=== PATIENT | male | born 1975 | race Hispanic/Latino ===

== ENCOUNTER 2022-06-28 18:38 | Observation (INO) | payer SELFPAY ==
--- NOTE | ~2022-06-28 | CT_ITS ---
CT OF right foot EXAMINATION: CT foot RT w con DATE: 06/28/2022 21:17 INDICATION: Concern for abscess on the plantar aspect of the foot/toes in the region of the second an d third digits. History of [place]at[place]al [place] possibly by pin fixation, subsequently removed. Generalized redness and swelling. Persistent pain. TECHNIQUE: Computed tomography (CT) of the right foot was performed without intravenous contrast. Aut omated exposure control and iterative reconstruction technique were employed. The dose-length product was 550.73 mGy-cm. COMPARISON: None. FINDINGS: Partially healed second metatarsal neck fracture, with approximately 25% osseous bridging. Suggestion of pin tracks in the second metatarsal head. Osteopenia and possible cortical erosions on the distal and inferior aspect of the second through fifth metatarsal heads. Partially healed fractures of the lateral cuneiform and cuboid bones. 5 mm fluid density collection along the dorsal surface of the an t superficial and slightly lateral to the second metatarsal head, with mild rim enhancement. Mild sub cutaneous edema of the foot, most pronounced in the forefoot. IMPRESSION: 1. 5 mm fluid density collection dorsal and slightly lateral to the second metatarsal head, may repre sent postsurgical change or early abscess. 2. Osteopenia and the suggestion of erosions in the second through fifth metatarsal heads which may r epresent disuse osteopenia, healing posttraumatic change, or early osteomyelitis. 3. Forefoot edema/cellulitis. 4. Healing fractures of the lateral cuneiform and cuboid bones. 5. Consider MR of the foot without and with contrast for further evaluation. Reviewed, dictated and finalized at location [facility]. [employer] POLICY ADVISOR IMPRESSION: 1. 5 mm fluid density collection dorsal and slightly lateral to the second meta tarsal head, may represent postsurgical change or early abscess. 2. Osteopenia and the suggestion of erosions in the second through fifth metata rsal heads which may represent disuse osteopenia, healing posttraumatic change, or early osteomyelitis. 3. Forefoot edema/cellulitis. 4. Healing fractures of the lateral cuneiform and cuboid bones. 5. Consider MR of the foot without and with contrast for further evaluation.
--- NOTE | ~2022-06-28 | MR_ITS ---
MRI of the right foot CLINICAL HISTORY: Osteomyelitis TECHNIQUE: Sagittal T1-weighted and STIR images, axial T1-weighted, T1 fat-sat, and T2 fat-sat images , and coronal T1-weighted and T2 fat-sat images were performed. Following intravenous administration of 20 cc MultiHance gadolinium, T1-weighted fat-sat imaging was performed in the axial, coronal, and sagittal planes. Correlation made with CT scan of the right foot dated 06/28/2022. FINDINGS: There is no confluent hypointense T1 marrow signal to suggest osteomyelitis in the forefoot or visualized midfoot. Suggestion of postsurgical change about the second metatarsal head. Fracture of the distal second metatarsal neck is again present, as seen on recent CT scan. There are partially imaged probable healing fractures of the cuboid and lateral cuneiform, as seen on recent CT scan, wi th associated extensive marrow edema. Visualized joint spaces are essentially unremarkable. No signif icant joint effusion. Flexor and extensor tendons appear intact. There is mild nonspecific edema of the plantar musculature of the foot. No abscess evident. No intermetatarsal bursitis or Hernandez's neuroma evident. IMPRESSION: No evidence for osteomyelitis. Fractures of the second metatarsal neck, lateral cuneiform, and cuboid, as seen on recent CT scan. Reviewed, dictated and finalized at [facility]. ION ADMINISTRATOR
[2022-06-28 18:52] VITALS: BP 140/88; PULSE 105; RESP 16; TEMP 37.1; O2SAT 99
--- NOTE | 2022-06-28 19:37 | ED.LOWEXIN ---
HPI - Extremity Injury (Lower) General Chief Complaint: Extremity Injury, Lower <KASSY Reyes Last Filed: 06/29/22 00:42> Stated Complaint: R. foot infection <Tri Faith PA-C - Last Filed: 06/29/22 00:42> Time Seen by Provider: 06/28/22 19:25 <KASSY Reyes Last Filed: 06/29/22 00:42> History of Present Illness HPI Narrative: Patient is a 46-year-old male here for evaluation of right foot redness and swelling over the past week. Patient states that he sustained a fracture in his foot in [place] at the end of May. He went underwent surgery with pins placed at that time. Pins were removed at the end of May. He is currently wearing a postop shoe. Over the past week he has noted increased pain on the plantar aspect of his foot in addition to redness and swelling. He denies any fevers, chills, nausea or vomiting. He was seen in urgent care facility today where he had an x-ray done that could not rule out osteomyelitis so he was referred here. Patient states that the pain is most severe when he is bearing weight on the foot. <KASSY Reyes Last Filed: 06/29/22 00:42> Related Data Allergies/Adverse Reactions: Allergies Allergy/AdvReac Type Severity Reaction Status Date / Time No Known Allergies Allergy Verified 06/28/22 18:56 <KASSY Reyes Last Filed: 06/29/22 00:42> Review of Systems Review of Systems: Gen.: Denies fevers or chills Eyes: Denies eye pain or visual change ENT: Denies congestion Respiratory: Denies shortness of breath or cough CV: Denies chest pain or palpitations GI: Denies abdominal pain nausea, emesis or diarrhea denies burning, urgency, frequency or hematuria Musculoskeletal: Reports right foot pain Neuro: Denies numbness, tingling, weakness or focal weakness Skin: Denies rash Except as documented, all other systems reviewed and negative <KASSY Reyes Last Filed: 06/29/22 00:42> Exam Narrative: APPEARANCE: Well appearing, no pain in distress, well-nourished. Head: Normocephalic and atraumatic. EYES: PERRLA/EOMI, conjunctivae clear NOSE: No nasal drainage EARS: External ear normal in appearance THROAT: Oropharynx is clear. Mucous membranes are moist. NECK: Supple. No adenopathy, no masses. RESPIRATORY: Airway patent, respirations nonlabored. Clear to auscultation bilaterally, no rales, rhonchi, wheezing. CARDIOVASCULAR: Regular rate and rhythm without murmurs, rubs, or gallops. ABDOMINAL: Normoactive bowel sounds. Soft, nontender, nondistended. No rebound tenderness or guarding. MUSCULOSKELETAL: There is slight redness and swelling to the entirety of the foot, most notably on the plantar aspect around the base of toes 2 and 3. This area is firm and tender to palpation. No obvious fluctuance. He has full range of motion in the foot without pain. There is a surgical scar on the dorsal aspect of the foot that is healing well. No drainage noted from the scar. NEURO: Normal speech. No focal neurologic deficits. SKIN: Skin is warm and dry. No rashes. PSYCHIATRIC: Normal affect/mood. <Tri Faith PA-C - Last Filed: 06/29/22 00:42> Course JAVA ANALYST/PA Physician Supervision For this encounter, I have reviewed the PA documentation, treatment plan and medical decision making: And I have had [id number] time with the patient. Right foot diffusely swollen with increased tenderness at the base of the MTP joints 2 3 and 4 there is mild erythema no definitive open wounds no definitive fluctuance dorsalis pedis pulse 2+ neurovascular intact discussed with patient conversations with orthopedics plan for admission all questions answered in agreement at this time <Sridhar Hernandez DO - Last Filed: 06/28/22 22:59> Vital Signs Vital signs: Vital Signs Temperature 98.7 F 06/28/22 18:52 Pulse Rate 105 H 06/28/22 18:52 Respiratory Rate 16 06/28/22 18:52 Blood Press
[2022-06-28] MEDS: HYDROcodone/acetaminophen (*CRX) 5-325 MG TABLET 1 TAB PO (19:50)
[2022-06-28 19:52] LABS: Basophils Absolute Auto 0.1 K/mm3 (0.0-0.1); Basophils Percent Auto 0.5 % (0.2-1.2); Eosinophils Absolute Auto 0.6 K/mm3 (0-0.3); Eosinophils Percent Auto 5.8 % (0-4.4); Hematocrit 47.8 % (42.0-52.0); Hemoglobin 17.2 g/dL (14.0-18.0); Immature Granulocyte Absolute 0.02 K/mm3 (0.00-0.031); Immature Granulocyte Percent A 0.2 % (0-0.5); Lymphocytes Absolute Auto 2.55 K/mm3 (0.9-3.2); Lymphocytes Percent Auto 25.2 % (18.3-44.2); Mean Corpuscular Volume 86.1 fl (80-100); Mean Platelet Volume 9.4 fl (7.4-10.4); Monocytes Absolute Auto 0.8 K/mm3 (0.1-0.6); Monocytes Percent Auto 8.2 % (2.6-8.5); Neutrophils Absolute Auto 6.1 K/mm3 (1.3-6.7); Neutrophils Percent Auto 60.1 % (45.5-73.1); Platelet Count Result 295 k/mm3 (150-375); Red Blood Count 5.55 M/mm3 (4.6-6.20); Red Cell Distribution Width 11.8 % (11.5-14.5); White Blood Count 10.1 K/mm3 (4.5-10.0)
[2022-06-28 20:05] LABS: Alanine Aminotransferase 29 U/L (6-50); Albumin Level 4.9 g/dL (3.5-5.1); Alkaline Phosphatase 90 U/L (38-126); Anion Gap 10 mmol/L (8-16); Aspartate Amino Transferase 27 U/L (17-59); Bilirubin,Total 0.5 mg/dL (0.2-1.3); Blood Urea Nitrogen 26 mg/dL (9-20); CRP 0.6 mg/dL (<1.0); Calcium 9.3 mg/dL (8.4-10.2); Carbon Dioxide 26 mmol/L (22-30); Chloride 105 mmol/L (98-107); Estimated CRCL calculation 96 ml/min; Estimated Glomerular Filt Rate > 60; Glucose 99 mg/dL (65-110); Sodium 141 mmol/L (137-145)
[2022-06-28 20:14] LABS: D Dimer 0.48 ug/mL (<0.48)
[2022-06-28 20:27] LABS: Erythrocyte Sedimentation Rate 5 mm/hr (0-20)
--- NOTE | 2022-06-28 22:53 | PM.IMHP ---
H&P: HPI History of Present Illness Date/Time: 06/28/22 22:53 Chief Complaint: right foot pain Narrative: This is a 46-year-old male with known significant past medical history patient presents to the emergency room due to right foot pain and swelling and tenderness upon weight-bearing patient was on a occasion on to [place] where he fracture his foot which require hardware wound which was removed patient now presents after 6 weeks with swelling tenderness in the site. Patient denies any fevers, rigors, chills, night sweats, nausea, vomiting, generalized body aches or pains. Preliminary workup was significant for a CT of the foot was reported as: FINDINGS: Partially healed second metatarsal neck fracture, with approximately 25% osseous bridging. Suggestion of pin tracks in the second metatarsal head. Osteopenia and possible cortical erosions on the distal and inferior aspect of the second through fifth metatarsal heads. Partially healed fractures of the lateral cuneiform and cuboid bones. 5 mm fluid density collection along the dorsal surface of the foot superficial and slightly lateral to the second metatarsal head, with mild rim enhancement. Mild subcutaneous edema of the foot, most pronounced in the forefoot. IMPRESSION: 1. 5 mm fluid density collection dorsal and slightly lateral to the second metatarsal head, may represent postsurgical change or early abscess. 2. Osteopenia and the suggestion of erosions in the second through fifth metatarsal heads which may represent disuse osteopenia, healing posttraumatic change, or early osteomyelitis. 3. Forefoot edema/cellulitis. 4. Healing fractures of the lateral cuneiform and cuboid bones. 5. Consider MR of the foot without and with contrast for further evaluation. patient has been admitted for further evaluation management and treatment. Review of Systems Review of Systems: Right foot swelling and tenderness upon weight-bearing Constitutional: Constitutional: Denies chills, Denies fever(s), Denies malaise, Denies night sweats, Denies poor appetite and Denies weakness Eyes: Eyes: Denies change in vision ENT: Denies dysphagia, Denies vertigo, Denies dizziness and Denies odynophagia Cardiovascular: Cardiovascular: Denies chest pain, Denies leg edema, Denies palpitations and Denies orthopnea Respiratory: Respiratory: Denies chest congestion, Denies cough, Denies pain on inspiration and Denies dyspnea on exertion Gastrointestinal: Gastrointestinal: Denies abdominal pain, Denies dyspepsia, Denies heartburn, Denies diarrhea, Denies nausea and Denies vomiting Genitourinary: Genitourinary: Denies dysuria Musculoskeletal: Musculoskeletal: Reports other ( right foot pain upon weight-bearing on old fracture site) Integumentary/Breasts: Skin/Breast: Reports skin swelling ( right foot plantar aspect forefoot) Neurologic: Denies focal weakness and Denies Sensory deficit (Neuro) Psychiatric: Psychiatric: Reports no additional psychiatric complaints and Reports as per HPI Endocrine: Endocrine: Denies cold intolerance, Denies flushing, Denies heat intolerance, Denies polyphagia, Denies polydipsia and Denies palpitations Hematologic/Lymphatic: Hematologic/Lymphatic: Reports no additional hematologic/lymphatic complaints and Reports as per HPI Allergic/Immunologic: Allergic/Immunologic: Reports no additional allergic/immunologic complaints and Reports as per HPI PMFSH Social History Social History Smoking status: Never smoker Second hand tobacco smoke exposure: No Alcohol intake: current Substance use: never Substance use type: does not use Lack of Transportation: No Lack of Food: Never True Current Housing: I Have Housing Concerned About Future Housing: No Difficulty Paying Gas/Electric Bills: No Difficulty Paying for Meds: No Currently Unemployed: No Education: High School Diploma/GED Difficulty w/ Childcare or Family Care: No Spiritual care concerns: No
[2022-06-28 23:17] LABS: Influenza A QL RT-PCR Negative (Negative); Influenza B QL RT-PCR Negative (Negative); SARS-CoV-2 RNA PCR Negative
[2022-06-28 23:18] VITALS: BP 140/96; PULSE 88; RESP 14; TEMP 36.8; O2SAT 97
[2022-06-29] MEDS: CLINDAMYCIN 600 MG/D5W 50 ML 600 MG/50 ML PIGGYBACK 100 MG IVPB ×2 (00:02→09:31)
[2022-06-29 00:36] VITALS: BP 131/90; PULSE 77; RESP 16; TEMP 36.5; O2SAT 100
[2022-06-29 06:00] VITALS: BP 122/84; PULSE 77; RESP 16; TEMP 36.1; O2SAT 98
--- NOTE | 2022-06-29 08:04 | PM.IMPN ---
Progress Note: A&P Assessment and Plan (1) Foot pain, right: Code(s): M79.671 - Pain in right foot Status: Acute Assessment and Plan: Orthopedic surgery consult pending MRI of foot negative for osteomyelitis or abscess Started on vancomycin and clindamycin in the ER, will DC clindamycin in favor of Rocephin Update: Orthopedic surgery has seen the patient, no concern for infection, okay to stop antibiotics. Plan for fracture boot, discharge, and follow-up outpatient. Plan DVT prophylaxis with SCDs GI prophylaxis not indicated Code status full code Subjective Date/time seen: 06/29/22 08:04 Interval history: No overnight events noted. No chest pain or shortness of breath. No nausea, vomiting or diarrhea. No fevers or chills. Pain with weight-bearing on right lower extremity, unchanged. Review of Systems Review of Systems: 12 point review of systems was assessed and was negative except as noted in the HPI Exam Narrative: General: No acute distress, alert and oriented per baseline HEENT: Atraumatic, normocephalic, mucous membranes moist CV: Regular rate and rhythm, S1, S2 Lungs: Clear to auscultation bilaterally, no rales or crackles noted, no wheezes, good air entry Abdomen: Soft, nontender, nondistended Extremities: Normal to inspection, no ligament laxity noted at bilateral ankle joint, no edema, no ecchymotic areas Skin: No rashes noted, no lesions or wounds seen Psych: Euthymic, normal affect Neuro: Cranial nerves 2-12 grossly intact, strength +5/5 upper and lower extremities bilaterally Objective Data Vital Signs Vital Signs: Vital Signs - 24 hr 06/28/22 18:52 06/28/22 23:18 06/29/22 00:36 Temperature 98.7 F 98.2 F 97.7 F Pulse Rate 105 H 88 77 Respiratory Rate 16 14 16 Blood Pressure 140/88 140/96 H 131/90 Pulse Oximetry 99 97 100 Oxygen Delivery Room Air 06/29/22 06:00 Temperature 97 F L Pulse Rate 77 Respiratory Rate 16 Blood Pressure 122/84 Pulse Oximetry 98 Oxygen Delivery Meds/Results Medications: Active Medications Generic Name Dose Route Start Last Admin Trade Name Freq PRN Reason Stop Dose Admin Clindamycin Phosphate 600 mg in 50 mls @ 100 mls/hr 06/29/22 08:00 Clindamycin 600 Mg/D5w 50 Ml IVPB Q8H [facility] Vancomycin HCl 1,750 mg in 500 mls @ 250 mls/hr 06/29/22 11:00 Vancomycin 1,750 Mg/D5w 500 Ml IVPB Q12H [facility] Radiology Results: ITS Impressions Foot CT 06/28/22 22:07 IMPRESSION: 1. 5 mm fluid density collection dorsal and slightly lateral to the second metatarsal head, may represent postsurgical change or early abscess. 2. Osteopenia and the suggestion of erosions in the second through fifth metatarsal heads which may represent disuse osteopenia, healing posttraumatic change, or early osteomyelitis. 3. Forefoot edema/cellulitis. 4. Healing fractures of the lateral cuneiform and cuboid bones. 5. Consider MR of the foot without and with contrast for further evaluation. Labs Labs: Laboratory Results - last 24 hr 06/28/22 06/28/22 06/28/22 19:43 19:43 19:43 WBC 10.1 H RBC 5.55 Hgb 17.2 Hct 47.8 MCV 86.1 MCH 31.0 MCHC 36.0 RDW 11.8 Plt Count 295 MPV 9.4 Immature Gran % (Auto) 0.2 Neut % (Auto) 60.1 Lymph % (Auto) 25.2 [place] % (Auto) 8.2 Eos % (Auto) 5.8 H Baso % (Auto) 0.5 Lymph # (Auto) 2.55 [place] # (Auto) 0.8 H Eos # (Auto) 0.6 H Baso # (Auto) 0.1 Abs Immat Gran (auto) 0.02 Absolute Neuts (auto) 6.1 Absolute Nucleated RBC 0.0 Nucleated RBC % 0.0 ESR 5 D-Dimer Sodium 141 Potassium 4.0 Chloride 105 Carbon Dioxide 26 Anion Gap 10 BUN 26 H Creatinine 1.00 Estim Creat Clear Calc 96 Estimated GFR > 60 Glucose 99 Lactic Acid 2.0 Calcium 9.3 Total Bilirubin 0.5 AST 27 ALT 29 Alkaline Phosphatase 90 C-Reactive Protein 0.6 Total Protein 8.0
[2022-06-29 14:00] VITALS: BP 139/88; PULSE 94; RESP 18; TEMP 36.5; O2SAT 100
--- NOTE | 2022-06-29 15:41 | PM.CNOR ---
Assessment and Plan Assessment and plan (1) Fracture of lateral cuneiform bone of right foot: Code(s): S92.221A - Displaced fracture of lateral cuneiform of right foot, initial encounter for closed fracture Status: Acute (2) Fracture of second metatarsal bone of right foot: Code(s): S92.321A - Displaced fracture of second metatarsal bone, right foot, initial encounter for closed fracture Status: Acute (3) Fracture of cuboid of right foot: Code(s): S92.211A - Displaced fracture of cuboid bone of right foot, initial encounter for closed fracture Status: Acute (4) Foot pain, right: Code(s): M79.671 - Pain in right foot Status: Acute Plan 46-year-old male with fractures of the second metatarsal, cuboid and lateral cuneiform of the right foot. He is about 2 months postop from his initial injury. Pins were placed into the 2nd metatarsal head and were taken out 5 weeks later. The incision associated with this surgical procedure is clean and dry with no sign of infection. MRI shows no sign of osteomyelitis. The cuboid lateral cuneiform are healing. He denies any fevers or chills. I have a very low suspicion for cellulitis. I believe the most of his pain and swelling is coming from the fracture at the 2nd metatarsal. The 2nd metatarsal remains in near anatomic alignment so he will be treated non surgically. At this point he will use the postop shoe and be touchdown weight-bearing. He will use crutches as a gait aid. Plan for follow-up in 2 weeks in our office for new x-ray. This was discussed with the patient and he is satisfied with this plan. History of Present Illness HPI Consult date: 06/29/22 Consult reason: fracture (Right 2nd metatarsal) Chief complaint: r foot cellulitis Narrative: 46-year-old male admitted for right foot pain and swelling. He reports towards the end of April 2022 he jumped and landed on his right foot and twisted his foot and ankle. This caused immediate pain and swelling. This prompted him to see an orthopedic surgeon in [place]. Surgery was done with pin placement into the head of the metatarsal. He reports that the pins were taken out 5 weeks after surgery and he was told to start to slowly increase his activity level. He was doing okay until recently when he started to develop pain and swelling in the plantar aspect of the foot. He denies any fevers or chills. He does report swelling and redness of the foot that has significantly improved since he has been admitted. CT of the right foot showed a fluid density near the 2nd metatarsal head. MRI showed no sign of osteomyelitis but did reveal the healing fractures of the lateral cuneiform and cuboid. The MRI also showed a more acute 2nd metatarsal shaft and head fracture. Review of Systems Review of Systems: All systems reviewed & are unremarkable except as noted in HPI and below Constitutional: Constitutional: Reports as per HPI and Reports no additional constitutional complaints [facility] Social History Social History Smoking status: Never smoker Second hand tobacco smoke exposure: No Alcohol intake: current Substance use: never Substance use type: does not use Lack of Transportation: No Lack of Food: Never True Current Housing: I Have Housing Concerned About Future Housing: No Difficulty Paying Gas/Electric Bills: No Difficulty Paying for Meds: No Currently Unemployed: No Education: High School Diploma/GED Difficulty w/ Childcare or Family Care: No Spiritual care concerns: No Meds Home Medications and Allergies Allergies Allergy/AdvReac Type Severity Reaction Status Date / Time No Known Allergies Allergy Verified 06/28/22 18:56 Vital Signs Vital Signs - 24 hr 06/28/22 18:52 06/28/22 23:18 06/29/22 00:36 Temperature 98.7 F 98.2 F 97.7 F Pulse Rate 105 H 88 77 Respiratory Rate 16 14 16 Blood Pressur
--- NOTE | 2022-06-29 16:53 | PM.DS ---
DS: Admitting Diagnosis Discharge Date 06/29/22 Admitting Diagnosis foot pain DS: Discharge Diagnosis Discharge Diagnosis (1) Foot pain, right: Code(s): M79.671 - Pain in right foot Status: Acute Assessment and Plan: Orthopedic surgery consult pending MRI of foot negative for osteomyelitis or abscess Started on vancomycin and clindamycin in the ER, will DC clindamycin in favor of Rocephin Update: Orthopedic surgery has seen the patient, no concern for infection, okay to stop antibiotics. Plan for fracture boot, discharge, and follow-up outpatient. Plan DVT prophylaxis with SCDs GI prophylaxis not indicated Code status full code DS: Summary Hospital Course Hospital Course: 46-year-old male admitted for right foot pain and swelling.? He reports towards the end of April 2022 he jumped and landed on his right foot and twisted his foot and ankle.? This caused immediate pain and swelling.? This prompted him to see an orthopedic surgeon in [place].? Surgery was done with pin placement into the head of the metatarsal.? He reports that the pins were taken out 5 weeks after surgery and he was told to start to slowly increase his activity level.? CT? of the right foot showed a fluid density near the 2nd metatarsal head.? MRI showed no sign of osteomyelitis but did reveal the healing fractures of the lateral cuneiform and cuboid. The MRI also showed a more acute 2nd metatarsal shaft?and head fracture. Orthopedic surgery was consulted and made the following recommendations: He is about 2 months postop from his initial injury.? Pins were placed into the 2nd metatarsal head and were taken out 5 weeks later.? The incision associated with this surgical procedure is clean and dry with no sign of infection.? MRI shows no sign of osteomyelitis. The cuboid lateral cuneiform are healing.? He denies any fevers or chills. ? I have a very low suspicion for cellulitis. I believe the most of his pain and swelling is coming from the fracture at the 2nd metatarsal. The 2nd metatarsal remains in near anatomic alignment so he will be treated non surgically. At this point he will use the postop shoe and be touchdown weight-bearing.? He will use crutches as a gait aid.? Plan for follow-up in 2 weeks in our office for new x-ray.? This was discussed with the patient and he is satisfied with this plan. Time Spent with Patient Time attestation: Total time spent providing and/or coordinating discharge services: Exam Narrative: General: No acute distress, alert and oriented per baseline HEENT: Atraumatic, normocephalic, mucous membranes moist CV: Regular rate and rhythm, S1, S2 Lungs: Clear to auscultation bilaterally, no rales or crackles noted, no wheezes, good air entry Abdomen: Soft, nontender, nondistended Extremities: Normal to inspection, no ligament laxity noted at bilateral ankle joint, no edema, no ecchymotic areas Skin: No rashes noted, no lesions or wounds seen Psych: Euthymic, normal affect Neuro: Cranial nerves 2-12 grossly intact, strength +5/5 upper and lower extremities bilaterally DS: Data Data Completed and Pending Labs on day of discharge: Labs from last 24 hours 06/28/22 06/28/22 06/28/22 22:33 19:49 19:43 WBC RBC Hgb Hct MCV MCH MCHC RDW Plt Count MPV Immature Gran % (Auto) Neut % (Auto) Lymph % (Auto) [place] % (Auto) Eos % (Auto) Baso % (Auto) Lymph # (Auto) [place] # (Auto) Eos # (Auto) Baso # (Auto) Abs Immat Gran (auto) Absolute Neuts (auto) Absolute Nucleated RBC Nucleated RBC % ESR D-Dimer 0.48 Sodium Potassium Chloride Carbon Dioxide Anion Gap BUN Creatinine Estim Creat Clear Calc Estimated GFR Glucose Lactic Acid 2.0 Calcium Total Bilirubin AST ALT Alkaline Phosphatase C-Reactive Protein Total Protein Albumin Influenza A (RT-PCR) Negativ
== END 2022-06-29 18:15 | disposition home or self-care (01) ==
LOC: ANHED 22:58 → ANH3MEDSUR 06-29 00:33
PROVIDERS: Admitting Provider Internal Medicine; Emergency Provider Physician Assistant; Visit Provider Student in an Organized Health Care Education/Training Program
DX: M79.671 Pain in right foot (principal); S92.221A Displaced fracture of lateral cuneiform of right foot, initial encounter for closed fracture; S92.321A Displaced fracture of second metatarsal bone, right foot, initial encounter for closed fracture; R22.41 Localized swelling, mass and lump, right lower limb; M85.871 Other specified disorders of bone density and structure, right ankle and foot; Z98.890 Other specified postprocedural states; Z20.822 Contact with and (suspected) exposure to COVID-19; F10.90 Alcohol use, unspecified, uncomplicated; Z87.81 Personal history of (healed) traumatic fracture
CPT/HCPCS: 36415; 73701; 73720; 80053; 83605; 85025; 85380; 85652; 86140; 87636; 96374; 96375; 99285; A9270; A9577; G0378; G0379; J0696; J3370; Q9967